=== PATIENT | female | born 1970 | race Caucasian/White ===

== ENCOUNTER 2018-06-30 22:52 | Emergency (ER) | payer SELFPAY ==
[~2018-06-30] VITALS: Ht 160 cm; Wt 62.0 kg
[2018-06-30 23:37] LABS: HEMATOCRIT 37.9 % (36.0-46.0); HEMOGLOBIN 13.1 G/DL (11.9-15.5); MCH 33.2 PG (29.0-34.0); MCHC 34.6 G/DL (30.0-36.0); MCV 95.9 FL (83-99); PLATELET COUNT 311 K/uL (156-360); RBC DIS.WIDTH-CV 11.5 % (11.8-14.6); RBC DIS.WIDTH-SD 40.4 % (39-53); RED BLOOD COUNT 3.95 M/uL (3.80-5.20); WHITE BLOOD COUNT 7.5 K/uL (4.1-10.2)
[2018-06-30 23:45] LABS: CHLORIDE 105 mEq/L (99-109); POTASSIUM 3.7 mEq/L (3.7-5.4); SODIUM 139 mEq/L (136-147)
[2018-06-30 23:47] LABS: GLUCOSE 92 mg/dL (70-99)
[2018-06-30 23:51] LABS: CREATININE 0.7 mg/dL (0.6-1.3); GFR ESTIMATE (CALCULATED) > 59 mL/min/
[2018-06-30 23:52] LABS: UREA NITROGEN (BUN) 11 mg/dL (9-23)
[2018-06-30 23:58] LABS: TROP-I INTERPRETATION NEGATIVE; TROPONIN-I < 0.01 ng/mL (0.0-0.30)
[2018-07-01 02:00] LABS: TROP-I INTERPRETATION NEGATIVE; TROPONIN-I < 0.01 ng/mL (0.0-0.30)
[2018-07-01] MEDS ORDERED: ZANTAC150 MG PO (02:12)
[2018-07-01 02:27] VITALS: BP 113/83
== END 2018-07-01 02:27 | disposition home or self-care (01) ==
LOC: EME 22:52
PROVIDERS: Emergency Medicine
DX: R07.9 Chest pain, unspecified (principal); K21.9 Gastro-esophageal reflux disease without esophagitis; J45.909 Unspecified asthma, uncomplicated
CPT/HCPCS: 71046; 80048; 84484; 85027; 93005; 99281; 99284